=== PATIENT | female | born 1990 | race Caucasian/White ===

== ENCOUNTER 2024-07-20 11:11 | Outpatient (CLI) | payer OTHER, SELFPAY ==
[2024-07-20 18:07] LABS: Basophils Absolute Auto 0.1 K/mm3 (0.0-0.1); Basophils Percent Auto 0.8 % (0.2-1.2); Eosinophils Absolute Auto 0.3 K/mm3 (0-0.3); Eosinophils Percent Auto 3.5 % (0-4.4); Hematocrit 42.9 % (37.0-47.0); Hemoglobin 14.4 g/dL (12.0-15.0); Immature Granulocyte Absolute 0.02 K/mm3 (0.00-0.031); Immature Granulocyte Percent A 0.2 % (0-0.5); Lymphocytes Absolute Auto 2.27 K/mm3 (0.9-3.2); Lymphocytes Percent Auto 27.1 % (18.3-44.2); Mean Corpuscular HGB Conc 33.6 g/dl (32-36); Mean Corpuscular Hemoglobin 30.6 pg (26-34); Mean Corpuscular Volume 91.1 fl (80-100); Mean Platelet Volume 10.1 fl (7.4-10.4); Monocytes Absolute Auto 0.8 K/mm3 (0.1-0.6); Monocytes Percent Auto 9.1 % (2.6-8.5); Neutrophils Percent Auto 59.3 % (45.5-73.1); Platelet Count Result 253 k/mm3 (150-375); Red Blood Count 4.71 M/mm3 (4.2-5.4); Red Cell Distribution Width 12.7 % (11.5-14.5); White Blood Count 8.4 K/mm3 (4.5-10.0)
[2024-07-20 18:10] LABS: Alanine Aminotransferase 23 U/L (6-35); Albumin Level 4.6 g/dL (3.5-5.1); Alkaline Phosphatase 55 U/L (38-126); Anion Gap 11 mmol/L (4-12); Aspartate Amino Transferase 38 U/L (14-36); Bilirubin,Total 0.4 mg/dL (0.2-1.3); Blood Urea Nitrogen 15 mg/dL (7-17); Calcium 9.5 mg/dL (8.4-10.2); Carbon Dioxide 26 mmol/L (22-30); Chloride 102 mmol/L (98-107); Cholesterol 220 mg/dL (0-200); Estimated Glomerular Filt Rate > 60; Glucose 78 mg/dL (65-110); HDL Direct 72 mg/dL; Potassium 4.2 mmol/L (3.4-5.0); Sodium 139 mmol/L (137-145); Triglycerides 99 mg/dL (<150)
[2024-07-20 18:20] LABS: LDL Cholesterol Direct 113 mg/dL
--- OUTSIDE RECORDS SUMMARY | 2024-07-21 12:33 | XMS_ITS | Clinical Summary ---
Author Organization [facility] Address [address] [place] [address] Care Team Providers Care Federal Judicial Law Clerk Name Role Phone Lissette Sarmiento MD Primary Care Provider [phone] Allergies No known active allergies Medications sertraline (Zoloft) 50 mg tabletIndication s:Anxiety Take 1 Tablet (50 mg) by mouth daily. 30 Tablet 5 10/15/2020 Active Active Problems Problem Noted Date Diagnosed Date Chlamydia 09/29/2017 Overview (07/16/2020): tx'd 09/29/17 CHRISTEN neg 12/22/17 Anxiety 09/22/2017 Overview (07/16/2020): zoloft 50mg H/O degenerative disc disease 09/22/2017 Overview (07/16/2020): surgery 2014 Anesthesia referral Referral to PT 11/24/17 Degenerative disc disease, lumbar 08/27/2014 Immunizations Immunization Administration Dates Next Due (ADACEL/BOOSTRIX)(10 YR UP) TDAP VACCINE, 0.5ML, IM 01/27/2021,01/12/2018 INFLUENZA VACCINE QUADRIVALENT 6 MOS UP PF IM ,12/22/2017 Family History Medical History Relation Name Comments Healthy Daughter Healthy Father Healthy Mother Relation Name Status Comments Daughter Alive Father Alive Mother Alive Social History Tobacco Use Types Packs/Day Years Used Date Smoking Tobacco: Former Cigarettes Q uit: 04/28/2017 Smokeless Tobacco: Never Alcohol Use Standard Drinks/Week Comments Not Currently 1 (1 standard drink = 0.6 oz pur e alcohol) rare Comments No Sex and Gender Information Value Date Recorded Sex Assigned at Not on file Legal Sex Female 11:54 PM CDT Gender Identity Not on file Sexual Orientation Not on file Last Filed Vital Signs Vital Sign Reading Time Taken Comments Blood Pressure 110/70 10/15/2020 3:48 PM CDT Pulse 96 10/15/2020 3:56 PM CDT Temperature 37.6 C (99.7 F) 10/15/2020 3:48 PM CDT Respiratory Rate 14 10/15/2020 3:48 PM CDT Oxygen Saturation 99% 10/15/2020 3:48 PM CDT Inhaled Oxygen Concentration - - Weight 75.8 kg (167 lb) 06/02/2021 4:01 PM CDT Height 159 cm (5' 2.6 ) 06/02/2021 4:01 PM CDT Body Mass Index 29.96 06/02/2021 4:01 PM CDT Plan of Treatment Health Maintenance Due Date Last Done Comments HEPATITIS B VACCINES (1 of 3 - 19+ 3-dose series) 2010 HPV/Cotest (21-29) 02/15/2012 CERVICAL CANCER SCREENING 2021 HPV/Cotest (30-65) 2021 PAP SMEAR 2021 INFLUENZA VACCINE (#1) 2023 , 12/22/2017 COVID-19 Vaccine (3 - 2023- season) 2023 10/30/2020, 10/09/2020 DTAP/TDAP/TD VACCINES (3 - Td or Tdap) 01/27/2031 01/27/2021, 01/12/2018 HPV VACCINES Aged Out No longer eligi ble based on patient's age to complete this topic Insurance [employer] [facility] MEDICAID SEFERINO ROSADO Care Teams Federal Judicial Law Clerk Relationship Specialty Start Date End Date Lissette Sarmiento MD PCP - General Family Practice 07/16/20
--- OUTSIDE RECORDS SUMMARY | 2024-07-21 12:33 | XMS_ITS | Encounter Summary ---
Author Organization [facility] Healthcare Address [address] [place] [address] Care Team Providers Care Melting Furnace Skimmer Name Role Phone Miscellaneous, Not In File Unavailable Unava Luiza Witt MD Primary Care Provid er Rob Tiwari DO Primary Care Provider [phone] Encounter Details Date Type Department Care Team (Late st Contact Info) Description 02/13/2020 Telephone [facility] Radiology [address] [facility] [address] [place] [phone] Jennifer Healy RT Social History Tobacco Use Types Packs/Day Years Used Date Smoking Tobacco: Never Smokeless Tobacco: Never Alcohol Use Standard Drinks/Week Comments No 0 (1 standard drink = 0.6 oz pur e alcohol) Comments No Sex and Gender Information Value Date Recorded Sex Assigned at Not on file Legal Sex Female 10:24 AM CDT Gender Identity Female 01/21/2020 2:36 PM SMALL PRODUCTS ASSEMBLER Sexual Orientation Straight 01/21/2020 2: 36 PM SMALL PRODUCTS ASSEMBLER Occupation Industry Job Start Date Job End Date student Not on file Not on file Not on file documented as of this encounter Plan of Treatment Not on file documented as of this encounter Visit Diagnoses Not on filedocumented in this encounter Care Teams Melting Furnace Skimmer Relationship Specialty Start Date End Date Luiza Bahena MD PCP - General Internal Medicine 11/19/19 02/03/22 Rob Tiwari DO PCP - General Internal Medicine 02/04/22 Miscellaneous, Not In File 11/24/17 documented as of this encounter
--- OUTSIDE RECORDS SUMMARY | 2024-07-21 12:33 | XMS_ITS | Clinical Summary ---
Author Organization [facility] Address [address] [place] [address] Care Team Providers Care Care Management Assistant Name Role Phone Rob Tiwari DO Primary Care Provider Source Comments [facility],non-owned Affiliates and Associated Physician Practices is amultiple site organization consisting of ambulatory clinics and hospital sitesin [place], [place], [place] and [place]. This disclosure is being madepursuant to the Care Everywhere program and may not contain all information available regarding this patient. Last updated 17.[facility] Allergies Active Allergy Reactions Criticality Noted Date Comments Amoxicillin Eye Itching,Eye Redness,Itching,Other,Rash,Skin Reactions,Swelling Medium 10/07/2022 Medications * Be aware that medications may not be up to date on this document. Alwaysverify current medications with the patient. sertraline (Zoloft) 100 MG tablet Take 1.5 (one and one-half) tablets by mouth once daily 3 Active gabapentin (Neurontin) 600 MG tablet Take 1 (one) tablet by mouth 3 times daily 3 Active tamsulosin (Flomax) 0.4 MG capsule Take 2 (two) capsules by mouth once daily for 30 days At the same time every day after a meal. 60 capsule 3 Active methylPREDNISolone (Medrol Dosepak) 4 MG tabletIndications:L umbar radiculopathy,S/P lumbar microdiscectomy Take as directed by mouth per package instructions . 21 Each 3 Active Active Problems Problem Noted Date Diagnosed Date Anxiety 09/22/2017 Overview (09/10/2020): zoloft 50mg Degenerative disc disease, lumbar 08/27/2014 Previous section complicating Resolved Problems Problem Noted Date Diagnosed Date Resolved Date , incidental 04/11/20212021 Call Law for delivery!!! 03/24/2021 04/29/2021 Nausea and vomiting in pregn hilary prior to 22 weeks gestation 09/20/2020 04/29/2021 Breech presentation, no version 04/29/2021 Immunizations Immunization Administration Dates Next Due CovChinaPNR primary monoval ent 12+ yr 0.3mL Purple cap 10/30/2020,10/09/2020 INFLUENZA VACCINE, QUADR. (F LUZONE; FLULAVAL; FLUARIX; AFLURIA QUADRIVALENT; 6MO+), 0.5 ML (IIV4) 12/30/2020,12/22/2017 TDAP (7yrs+) 01/27/2021,01/12/2018 Family History Medical History Relation Name Comments None Known Father None Known Mother Relation Name Status Comments Father Alive Maternal Grandfather Maternal Grandmother Mother Alive Paternal Grandfather Paternal Grandmother Social History Tobacco Use Types Packs/Day Years Used Date Smoking Tobacco: Former Smokeless Tobacco: Never Tobacco Cessation:Counseling Given: No Alcohol Use Standard Drinks/Week Comments Yes 0 (1 standard drink = 0.6 oz pur e alcohol) socially AUDIT-C Answer Date Recorded Q1: How often do you have a drink containing alc ohol? Monthly or less 11/03/2022 Average Number of Drinks Not on file 023 Frequency of Binge Drinking Not on file 10/19 PHQ-2 Answer Date Recorded PHQ2 TOTAL SCORE 0 04/07/2021 [place] Depression Scale Answer Date Recorded [place] Depression Scale Total 1 05/28/2021 Last EPDS Self Harm Result Not on file 05/28 Comments No Sex and Gender Information Value Date Recorded Sex Assigned at Female 09/04/2020 9:08 AM CDT Legal Sex Female 10:39 AM CDT Gender Identity Female 09/04/2020 9:08 AM CDT Sexual Orientation Straight 10/21/2022 11 :16 AM CDT Last Filed Vital Signs Vital Sign Reading Time Taken Comments Blood Pressure 107/72 01/27/2023 9:09 AM SAP BUSINESS INTELLIGENCE CONSULTANT Pulse 102 01/27/2023 9:09 AM SAP BUSINESS INTELLIGENCE CONSULTANT Temperature 36.7 C (98 F) 01/27/2023 9:09 AM SAP BUSINESS INTELLIGENCE CONSULTANT Respiratory Rate 18 01/27/2023 9:09 AM SAP BUSINESS INTELLIGENCE CONSULTANT Oxygen Saturation 99% 01/27/2023 9:09 AM SAP BUSINESS INTELLIGENCE CONSULTANT Inhaled Oxygen Concentration - - Weight 75.3 kg (166 lb) 01/27/2023 9:09 AM SAP BUSINESS INTELLIGENCE CONSULTANT Height 160 cm (5' 3 ) 01/27/2023 9:09 AM SAP BUSINESS INTELLIGENCE CONSULTANT Body Mass Index 29.41 01/27/2023 9:09 AM SAP BUSINESS INTELLIGENCE CONSULTANT Plan of Treatment Health Maintenance Due Date Last Done Comments HEPATITIS C SCREENING 02/09/2009 HEPATITIS B VACCINE (1 of 3 - 19+ 3-dose series) 2010 COVID-19 VACCINE (2023-2 5 season) 2023 10/30/2020, 10/09/2020 DEPRESSION SCREENING 03/21/2024 04/07/2021 INFLUENZA VACCINE (Season Ended) 2024 12/30/2020, 12/22/2017 PAP with HPV 09/11/2025 09/11/2020 DTAP/TDAP/TD VACCINES (3 - T d or Tdap) 01/27/2031 01/27/2021, 01/12/2018 ZOSTER VACCINE (1 of 2) 2041 HIV SCREENING Completed 09/11/2020 HIB VACCINE Aged Out No longer eligi ble based on patient's age to complete this topic HPV VACCINE Aged Out No longer eligi ble based on patient's age to complete this topic MENINGOCOCCAL (Group B) VACCINE SHARED DECISION-MAKING Aged Out No longer eligible based on patient's age to complete this topic MENINGOCOCCAL GROUPS A/C/Y/W VACCINE Aged Out No longer eligible b ased on patient's age to complete this topic PNEUMOCOCCAL VACCINE Aged Out No long er eligible based on patient's age to complete this topic Medical Devices Implanted Type Area Fibre Optics Jointer Device Identifier Shelf Expiration Date Model / Serial / Lot Graft Tissue Drgn + Bvn Clgn Mtrx 2x2in Implanted:Qty: 1 on 11/03/2022 by Lucy Chung MD at [facility] Left: Back Integra Neurosciences 07/18/2025 [id number] / / [id number] Description:[id number]-4-l-5-s1 Slnt Dura Duraseal Pg Trilysine Amine 5 - [id number] Implanted:Qty: 1 on 11/03/2022 by Lucy Chung MD at [facility] Left: Back Integra [employer]esciences Brionna 11/19/[id number] / [id number] / [id number] Graft Tissue Nushield 4x4cm Algrf - [id number] Implanted:Qty: 1 on 11/03/2022 by Lucy Chung MD at [facility] Left: Spine Lumbar Organogenesis 05/10/2026 [id number] / [id number] / Procedures Procedure Name Priority Date/Time Associated Diagnosis Comments HIV-1 HIV-2 ANTIBODY + HIV P24 AG PANEL Routine 09/11/2020 3:33 PM CDT Positive test PAP IG CT+NG+TV+HPV HR Routine 09/11/2020 3:16 PM CDT Screening for cervical cancer from Last 3 Months or Most Recently Relevant to Health Maintenance Results * HIV-1 HIV-2 ANTIBODY + HIV P24 AG PANEL (09/11/2020 3:33 PM CDT) [facility] HIV Screen 4th Generation w Reflex Non Reactive Non Reactive [facility] INSURANCE BILL Blood BLOOD SPECIMEN / Unknown 09/11/2020 3:33 PM CDT 09/11/2020 Narrative Resulting Agency Comment [facility] [address] [facility] [id number] Afia Law MD LAB - CHEMISTRY ORDERABLES Final Result [facility] INSURANCE BILL [address] [place] [address] * PAP IG CT+NG+TV+HPV HR (09/11/2020 3:16 PM CDT) Diagnosis [facility] INSURANCE BILL Comment:NEGATIVE FOR INTRAEP ITHELIAL LESION OR MALIGNANCY. Specimen Adequacy [facility] INSURANCE BILL Comment:Satisfactory for carmelo luation. No endocervical component is identified. Clinician Provided ICD10 [facility] INSURANCE BILL Comment: Z32.01 Z12.4 Performed by [facility] INSURANCE BILL Comment:John Gaffney totechnologist (ASCP) Comment . [facility] INSURANCE BILL Note [facility] INSURANCE BILL Comment: The Pap smear is a screening test designed to aid in the detection of premalignant and malignant conditions of the uterine cervix. It is not a diagnostic procedure and should not be used as the sole means of detecting cervical cancer. Both false-positive and false-negative reports do occur. . IGLBP CPT Code Automation [facility] INSURANCE BILL Comment: This liquid based ThinPrep(R) pap test was screened with the use of an image guided system. Human papillomavirus Aptima Negative Negative [facility] INSURANCE BILL Comment: This nucleic acid amplification test detects fourteen high-risk HPV types (16,18,31,33,35,39,45,51,52,56,58,59,66,68) without differentiation. Chlamydia trachomatis STACIA Negative Negative [facility] INSURANCE BILL GC STACIA Negative Negative [facility] INSURANCE BILL Trichomonas vaginalis by STACIA Negative Negative [facility] INSURANCE BILL Pathology/Cytolog y PART OF UTERINE CERVIX / Unknown 09/11/2020 3:16 PM CDT 09/11/2020 Narrative [facility] INSURANCE BILL - 09/14/2020 3:07 PM CDT No. of containers..01 ThinPrep Vial Resulting Agency Comment Lab Testing performed at: [address] [id number] [place] Afia Law MD LAB - PATHOLOGY/CYTOLOGY OR DERABLES Final Result [facility] INSURANCE BILL [address] [place] [address] from Last 3 Months or Most Recently Relevant to Health Maintenance Insurance [employer] Advance Directives * Full Code (Latest Code Status on File) Date Activated Date Inactivated Comments 11/03/2022 1:38 PM 11/06/2022 5:26 PM * Full Code Date Activated Date Inactivated Comments 11/03/2022 1:38 PM 11/03/2022 1:38 PM * Full Code Date Activated Date Inactivated Comments 10/23/2020 11:25 AM 10/23/2020 2:56 PM * Full Code Date Activated Date Inactivated Comments 09/20/2020 10:31 AM 09/20/2020 2:44 PM Care Teams Care Management Assistant Relationship Specialty Start Date End Date Rob Tiwari DO PCP - General Internal Medicine 10/28/22
--- OUTSIDE RECORDS SUMMARY | 2024-07-21 12:33 | XMS_ITS | Clinical Summary ---
Author Organization [facility] Healthcare Address [address] [place] [address] Care Team Providers Care Furniture Mechanic Name Role Phone Miscellaneous, Not In File Unavailable Unava ilable Rob Tiwari DO Primary Care Provider [phone] Allergies No known active allergies Medications norethindrone (MICRONOR) 0.35 mg tabletIndications: Contraception Take 1 tablet (0.35 mg total) by mouth daily. 28 tablet 12 9 Active FLUoxetine (FLUoxetine) 10 mg tablet/capsule Take 10 mg by mouth daily Active oxyCODONE-acetamin ophen (PERCOCET) 5-325 mg per tabletIndications: Pain Take 1 tablet by mouth every 6 (six) hours as needed for pain 20 tablet 0 Active gabapentin (NEURONTIN) 100 mg capsule TK 1 TO 2 CS PO TID PRF PAIN 0 Active cyclobenzaprine (FLEXERIL) 10 mg tablet 1 Active cyclobenzaprine (FLEXERIL) 5 mg tablet TAKE 1 OR 2 TABLETS BY MOUTH AT BEDTIME NEEDED FOR PAIN 1 Active ibuprofen (ADVIL,MOTRIN) 800 mg tablet 1 Active sertraline (ZOLOFT) 50 mg tablet 1 Active Active Problems Problem Noted Date Diagnosed Date Emergenct CS for failed ECV 03/25/2018 Overview (03/29/2018): # ID: Afebrile. No signs/symptoms of infection. # Heme: EBL 800 mL. Post-op Hgb 10.4. No symptoms acute blood loss anemia. # CV/Pulm: Vital signs stable, within normal limits. # GI/: Tolerating PO. Voiding spontaneously. # Pain: Controlled with above regimen. # anxiety: continue zoloft 50mg, mood stable. # DVT prophylaxis: Ambulating independently, sequential compression devices in place. # MOC: Undecided, will get something at PP visit, desires POP bridge. # MOF: # Disposition: Desires discharge home today Breech presentation 03/22/2018 Overview (03/25/2018): 03/22/18 thuy breech On BSUS 03/25/18 appears to continue to be thuy breech Nausea & vomiting 01/20/2018 Overview (01/20/2018): WAC VISIT 01/20/18 Nausea/vomiting: resolved with antiemetics, and IVF. No vomiting noted in WAC. Resolved urine ketones and feels better. ABD benign. tolerating PO well. Encouraged small frequent meals and PO fluids. Prescriptions given for Zofran ODT. Chlamydia 09/29/2017 Overview (01/12/2018): tx'd 09/29/17 CHRISTEN neg 12/22/17 09/22/2017 Overview (03/25/2018): Labs: Lab Results Component Value Date ABORH A Positive 09/22/2017 HEPBSAG Nonreactive 09/22/2017 Aneuploidy screening: declined Carrier testing: declined Anatomy sono: scheduled 12/01/17 1h gct: GBS: PP moc: Anxiety 09/22/2017 Overview (09/22/2017): zoloft 50mg H/O degenerative disc disease 09/22/2017 Overview (11/24/2017): surgery 2014 Anesthesia referral Referral to PT 11/24/17 Herniation of lumbar intervertebral disc without myelopathy 02/05/2015 Degeneration of intervertebral disc of lumbar re gion 02/05/2015 Degeneration of intervertebral disc of lumbosacr al region 02/05/2015 Lumbago 11/12/2014 Immunizations Immunization Administration Dates Next Due Influenza, Quadrivalent, Spl it, Preservative Free, Intramuscular 12/22/2017 Tdap 01/12/2018 Surgical History Surgery Date Site/Laterality Comments SPINE SURGERY 03/21/2014 - 03/20/2015 BACK SURGERY FL UPPER GI AIR CONTRAST W KUB 12/11/2019 Left Medical History Medical History Date Comments H/O degenerative disc disease fuentes rgery 2014 Anxiety zoloft 50mg Chronic pain disorder Low back pain Family History Medical History Relation Name Comments No Known Problems Father Arthritis Mother Family history of arthritis - (Added by TW Conv) Diabetes Mother Hypertension Mother's Sister Seizures Sister Family history of seizures - (Added by TW Conv) Relation Name Status Comments Father Mother Mother's Sister Sister Social History Tobacco Use Types Packs/Day Years Used Date Smoking Tobacco: Former Smokeless Tobacco: Never Alcohol Use Standard Drinks/Week Comments No 0 (1 standard drink = 0.6 oz pur e alcohol) Comments No Sex and Gender Information Value Date Recorded Sex Assigned at Not on file Legal Sex Female 10:24 AM CDT Gender Identity Female 01/21/2020 2:36 PM GANG LEADER Sexual Orientation Straight 01/21/2020 2: 36 PM GANG LEADER Occupation Industry Job Start Date Job End Date student Not on file Not on file Not on file Obstetrics History Para Term AB IAB SAB Ectopic Multiple Livin g Live Births 1 1 1 0 0 0 0 0 0 1 1 Date Outcome GA Total Labor Labor/2nd/3rd Weight Sex Type Anes PTL Graciela A1 A5 Name Clin 019 Term 37w 2d 0h 02m 0h 02m 2.67 kg (5 lb 14.2 oz) F CS-LT ranv Combin ed Spinal /Epidu ral N Livin g 8 9 ANUP GEM, GIRLB [place] Delivery Location:[facility] Main C ampus ([facility] 58LD) Last Filed Vital Signs Vital Sign Reading Time Taken Comments Blood Pressure 129/78 02/15/2022 1:43 PM GANG LEADER Pulse 90 02/15/2022 1:43 PM GANG LEADER Temperature 37.4 C (99.4 F) 12/11/2019 2:37 PM CDT Respiratory Rate 16 02/15/2022 1:43 PM GANG LEADER Oxygen Saturation 100% 02/15/2022 1:43 PM GANG LEADER Inhaled Oxygen Concentration - - Weight 78.5 kg (173 lb) 08/22/2020 9:29 AM CDT Height 160 cm (5' 3 ) 08/22/2020 9:29 AM CDT Body Mass Index 30.65 08/22/2020 9:29 AM CDT Plan of Treatment Health Maintenance Due Date Last Done Comments Cervical Cancer Screening 1991 Depression Screening 1991 Hepatitis C Screening 1991 Varicella Vaccines (1 of 2 - 13+ 2-dose series) 02/15/2004 Hepatitis B Screening 2009 Regular Well Visit/Exam 18-64 2009 Covid-19 Vaccine (3 - 2023-2 5 season) 2023 10/30/2020, 10/09/2020 Influenza Vaccine (#1) 2023 , 12/22/2017 DTaP/Tdap/Td Vaccine (3 - Td or Tdap) 01/27/2031 01/27/2021, 01/12/2018 HPV Vaccines Aged Out No longer eligi ble based on patient's age to complete this topic Pneumococcal vaccine <65 Aged Out No longer eligible based on patient's age to complete this topic Insurance [facility] CIGNA IBEW [facility] SEFERINO LAWSON Advance Directives For more information, please contact: [phone] * Full Code (Latest Code Status on File) Date Activated Date Inactivated Comments 03/25/2018 7:25 PM 03/29/2018 7:02 PM * Full Code Date Activated Date Inactivated Comments 03/25/2018 8:16 AM 03/25/2018 7:25 PM Full CPR in ca se of cardiopulmonary arrest Care Teams Furniture Mechanic Relationship Specialty Start Date End Date Rob Tiwari DO PCP - General Internal Medicine 02/04/22 Miscellaneous, Not In File 11/24/17
--- OUTSIDE RECORDS SUMMARY | 2024-07-21 12:33 | XMS_ITS | Referral Summary ---
Author Organization [facility] Healthcare Address [address] [place] [address] Care Team Providers Care Applications Development Consultant Name Role Phone Miscellaneous, Not In File Unavailable Unava ilable Rob Tiwari DO Primary Care Provider +1- [phone] Allergies No known active allergies Medications norethindrone [...] it, Preservative Free, Intramuscular 12/22/2017 Tdap 01/12/2018 Social History Tobacco Use Types Packs/Day Years Used Date Smoking Tobacco: Former Smokeless Tobacco: Never Alcohol Use Standard Drinks/Week Comments No 0 (1 standard drink = 0.6 oz pur e alcohol) Comments No Sex and Gender Information Value Date Recorded Sex Assigned at Not on file Legal Sex Female 10:24 AM CDT Gender Identity Female 01/21/2020 2:36 PM CONTINUOUS MINER Sexual Orientation Straight 01/21/2020 2: 36 PM CONTINUOUS MINER Occupation Industry Job Start Date Job End Date student Not on file Not on file Not on file Last Filed Vital Signs Vital Sign Reading Time Taken Comments Blood Pressure 129/78 02/15/2022 1:43 PM CONTINUOUS MINER Pulse 90 02/15/2022 1:43 PM CONTINUOUS MINER Temperature 37.4 C (99.4 F) 12/11/2019 2:37 PM CDT Respiratory Rate 16 02/15/2022 1:43 PM CONTINUOUS MINER Oxygen Saturation 100% 02/15/2022 1:43 PM CONTINUOUS MINER Inhaled Oxygen Concentration - - Weight 78.5 kg (173 lb) 08/22/2020 9:29 AM CDT Height 160 cm (5' 3 ) 08/22/2020 9:29 AM CDT Body Mass Index 30.65 08/22/2020 9:29 AM CDT Plan of Treatment Not on file Insurance [facility] CIGNA IBEW [facility] CIGNA [facility] [employer] SEFERINO IB Advance Directives For more information, please contact: [phone] * Full Code (Latest Code Status on File) Date Activated Date Inactivated Comments 03/25/2018 7:25 PM 03/29/2018 7:02 PM * Full Code Date Activated Date Inactivated Comments 03/25/2018 8:16 AM 03/25/2018 7:25 PM Full CPR in ca se of cardiopulmonary arrest Care Teams Applications Development Consultant Relationship Specialty Start Date End Date Rob Tiwari DO PCP - General Internal Medicine 02/04/22 Miscellaneous, Not In File 11/24/17
== END 2024-07-20 11:12 | disposition home or self-care (01) ==
LOC: ANHGOSHLAB 11:12
PROVIDERS: PCP Internal Medicine; Visit Provider Nurse Practitioner
DX: Z13.29 Encounter for screening for other suspected endocrine disorder (principal); Z13.0 Encounter for screening for diseases of the blood and blood-forming organs and certain disorders involving the immune mechanism; Z13.228 Encounter for screening for other metabolic disorders; Z13.220 Encounter for screening for lipoid disorders
CPT/HCPCS: 36415; 80053; 80061; 85025